=== PATIENT | male | born 1970 | race Caucasian/White ===

== ENCOUNTER 2016-07-30 18:31 | Observation (INO) | payer OTHER ==
[2016-07-30] MEDS ORDERED: VANCOMYCIN HCL/NORMAL SALINE 250 ML IV ONE (18:53)
[2016-07-30 19:02] LABS: % IMMATURE GRANULYOCYTES 0.1 % (0.0-1.1); ABSOLUTE IMMATURE GRANULOCYTES 0.01 10^3/uL (0.00-0.10); ADD DIFF? NO; ADD MORPH? NO; ADD SCAN? NO; ATYPICAL LYMPHOCYTE FLAG 10 (0-99); FRAGMENT RBC FLAG 0 (0-99); HEMATOCRIT 45.7 % (40.0-51.0); HEMOGLOBIN 15.7 g/dL (13.7-17.5); LEFT SHIFT FLG 0 (0-99); LIPEMIA HEMOLYSIS FLAG 90 (0-99); MEAN CELL HEMOGLOBIN 32.7 pg (27.9-34.1); MEAN CELL HEMOGLOBIN CONCENTR. 34.4 g/dL (32.4-36.7); MEAN CELL VOLUME 95.2 fL (81.5-99.8); MEAN PLATELET VOLUME 10.8 fL (8.7-11.7); PLATELET CLUMPS FLAG 0 (0-99); PLATELET COUNT 212 10^3/uL (150-400); RED CELL DISTRIBUTION WIDTH 11.8 % (11.5-15.2)
[2016-07-30 19:19] LABS: ANION GAP 10 mEq/L (8-16); CALCIUM 9.9 mg/dL (8.5-10.4); CARBON DIOXIDE 29 mEq/l (22-31); CHLORIDE 99 mEq/L (97-110); CREATININE 0.9 mg/dL (0.7-1.3); GLOMERULAR FILTRATION RATE > 60; GLUCOSE 91 mg/dL (70-100); POTASSIUM 4.1 mEq/L (3.5-5.2); SODIUM 138 mEq/L (134-144)
--- NOTE | 2016-07-30 19:58 | EDPHY ---
H & P Stated Complaint: ? INFECTED WOUND TO BASE OF L INDEX FINGER HPI/ROS: Chief complaint: Left pointer finger infection History of present illness: This is a 45-year-old male who presents to the emergency department for evaluation of a left pointer finger infection. Patient reports yesterday while camping he cut his finger. Over the last day he has developed pain, redness and swelling to the finger. He has now noticed red streaking up the arm. He denies other associated signs or symptoms including no fevers, chills or rigors. No abnormal coolness or paresthesias in the finger. He can still move the finger well. He believes his tetanus shot was within the last 10 years. Review of systems: A 10 point review of systems was obtained and other than described above was negative - Personal History Current Tetanus/Diphtheria Vaccine: Yes - Medical/Surgical History Hx Asthma: No Hx Chronic Respiratory Disease: No Hx Diabetes: No Hx Cardiac Disease: Yes Hx Renal Disease: No Hx Cirrhosis: No Hx Alcoholism: No Hx HIV/AIDS: No Hx Splenectomy or Spleen Trauma: No Other PMH: hernia, pacemaker - Social History Smoking Status: Never smoked - Physical Exam Exam: General Appearance: Alert, nontoxic. Eyes: Pupils equal and round no injection. Respiratory: Chest is non tender, lungs are clear to auscultation. Cardiac: regular rate and rhythm Gastrointestinal: Abdomen is soft and non tender, no masses, bowel sounds normal. Musculoskeletal: Neck is supple and non tender. Extremities have full range of motion and are non tender. Patient is flexing and extending his left pointer finger well. Skin: There is a wound on the extensor surface of the left pointer finger. It is erythema and edema to the proximal left pointer finger and the dorsum of the left hand. Red streaking all the way up to the level of the axilla. Constitutional: Initial Vital Signs Temperature (C) 36.8 C 07/30/16 18:34 Heart Rate 66 07/30/16 18:34 Respiratory Rate 20 07/30/16 18:34 Blood Pressure 123/78 H 07/30/16 18:34 O2 Sat (%) 95 07/30/16 18:34 O2 Delivery Mode Room Air Allergies/Adverse Reactions: No Known Allergies Allergy (Verified 07/30/16 18:32) Home Medications: Medication Instructions Recorded Herbals/Supplements -Info Only 1 ea PO DAILY 07/30/16 Medical Decision Making - Diagnostics Imaging: Imaging Impressions Hand X-Ray 07/30/16 18:59 Impression: Negative left hand radiographs. ED Course/Re-evaluation: Patient discussed with my secondary supervising physician Dr. Jerald Prieto. Patient presents to the emergency department for a possible infection of his left pointer finger. Patient does appear to have a cellulitis on the left pointer finger and hand. There is associated lymphangitis to the level of the axilla. I do not appreciate evidence of infectious tenosynovitis as of yet although this certainly could be developing. The finger is neurovascularly intact. Blood studies and x-ray unremarkable. Patient started on vancomycin. He is admitted for further evaluation and care. The plan has been discussed with the patient voiced understanding and agreement with it. Differential Diagnosis: Included but not limited to abscess, cellulitis, infectious tenosynovitis, lymphangitis - Data Points Laboratory Results: Laboratory Results 07/30/16 18:55 07/30/16 18:55 07/30/16 07/30/16 18:55 18:55 WBC 7.85 10^3/uL 10^3/uL (3.80-9.50) RBC 4.80 10^6/uL 10^6/uL (4.40-6.38) Hgb 15.7 g/dL g/dL (13.7-17.5) Hct 45.7 % % (40.0-51.0) MCV 95.2 fL fL (81.5-99.8) MCH 32.7 pg pg (27.9-34.1) MCHC 34.4 g/dL g/dL (32.4-36.7) RDW 11.8 % % (11.5-15.2) Plt Count 212 10^3/uL 10^3/uL (150-400) MPV 10.8 fL fL (8.7-11.7) Neut % (Auto) 65.0 % % (39.3-74.2) Lymph % (Auto) 19.1 % % (15.0-45.0) [place] % (Auto) 11.0 % % (4.5-13.0) Eos % (Auto) 4.3 % % (0.6-7.6) Baso % (Auto) 0.5 % % (0.3-1.7) Nucleat RBC Rel Count 0.0 % % (0.0-0.2) Absolute Neuts (auto) 5.10 10^3/uL 10^3/uL (1.70-6.50) Absolute Lymphs (auto) 1.50 10^3/uL 10^3/uL (1.00-3.00) Absolute Monos (auto) 0.86 10^3/uL H 10^3/uL (0.30-0.80) Absolute Eos (auto) 0.34 10^3/uL 10^3/uL (0.03-0.40) Absolute Basos (auto) 0.04 10^3/uL 10^3/uL (0.02-0.10) Absolute Nucleated RBC 0.00 10^3/uL 10^3/uL (0-0.01) Immature Gran % 0.1 % % (0.0-1.1) Immature Gran # 0.01 10^3/uL 10^3/uL (0.00-0.10) Sodium 138 mEq/L mEq/L (134-144) Potassium 4.1 mEq/L mEq/L (3.5-5.2) Chloride 99 mEq/L mEq/L (97-110) Carbon Dioxide 29 mEq/l mEq/l (22-31) Anion Gap 10 mEq/L mEq/L (8-16) BUN 21 mg/dL mg/dL (7-23) Creatinine 0.9 mg/dL mg/dL (0.7-1.3) Estimated GFR > 60 Glucose 91 mg/dL mg/dL (70-100) Calcium 9.9 mg/dL mg/dL (8.5-10.4) Medications Given: Discontinued Medications Vancomycin/Sodium Chloride (Vancomycin 1 Gm (Premix)) 250 mls @ 250 mls/hr IV EDNOW ONE PRN Reason: Protocol Stop: 07/30/16 19:52 Last Admin: 07/30/16 19:05 Dose: 250 mls Departure - Departure Disposition: [facility] Acute Condition: Good
[2016-07-30] MEDS ORDERED: ZOLPIDEM TARTRATE 5 MG TAB PO PRN (21:19)
[2016-07-30] MEDS ORDERED: ACETAMINOPHEN 325 MG TAB PO PRN (21:19)
[2016-07-30] MEDS ORDERED: ONDANSETRON DISINTEGRATING 4 MG TAB PO PRN (21:19)
[2016-07-30] MEDS ORDERED: ONDANSETRON 4 MG/2 ML VIAL IVP PRN (21:19)
[2016-07-30] MEDS ORDERED: oxyCODONE IR 5 MG TAB PO PRN (21:19)
--- NOTE | 2016-07-30 22:55 | GHP ---
[f rep st] HISTORY AND PHYSICAL DATE OF ADMISSION: 07/30/2016 CHIEF COMPLAINT: Pain and streaking in the right hand. HISTORY: This is a 45-year-old man, with minimal past medical history, who presents with complaints of a wound present on his right hand, that has developed worsening erythema, edema, and now streaki ng redness up to his axilla. The patient does not really recall what he did to his hand, but has steiner d a small cut at the base of his left index finger. He really was not noticing much about it, excep t that over the course of the day today, he noticed that it was significantly more red, and there wa s now streaking redness up his arm. He has not had fevers or chills. He has not felt sick. He bridges s have reasonable range of motion in his left finger. He has not had any purulent discharge from th is area. He has never had similar issues in the past. PAST MEDICAL HISTORY: Includes symptomatic bradycardia, status post permanent pacemaker placement. PAST SURGICAL HISTORY: 1. Bilateral inguinal hernia repair. 2. Pacemaker. FAMILY HISTORY: This was reviewed and is noncontributory. SOCIAL HISTORY: Patient is recently in the last year. His unexpectedly. He does have 1 daughter who is 7 years old. He is a nonsmoker, nondrinker, nondrug user. REVIEW OF SYSTEMS: A 10-point review of systems obtained, negative except as per HPI. MEDICATIONS: None. ALLERGIES: No known drug allergies. PHYSICAL EXAMINATION: VITAL SIGNS: BP 103/62, heart rate 58, respiratory rate 20. O2 saturation i s 97% on room air. Temperature 37.1. GENERAL APPEARANCE: This is a well-developed/well-nourished man. He is awake and alert. He is in no acute distress. EYES: Anicteric. HENT: Oropharynx fabio r. CARDIOVASCULAR: RRR, no MRG. PULMONARY: CTA bilaterally, normal work of breathing. ABDOMEN: Soft, nontender, nondistended. EXTREMITIES: No clubbing, cyanosis, or edema. SKIN: Warm, dry, w ell perfused, other than left index finger with a laceration at the base, erythema and edema involvi ng the 1st MCP, and streaking from the injury up to his left axilla, without any associated lymphade nopathy. NEURO/PSYCH: Oriented and appropriate, pleasant. CLINICAL DATA: Labs reviewed. CBC is unremarkable. Chemistry likewise unremarkable. Hand x-ray, personally reviewed and interpreted, showing no abnormality of the left hand. ASSESSMENT AND PLAN: This is a 45-year-old man presenting with left hand cellulitis and lymphangiti s. 1. Cellulitis/lymphangitis. Patient has been started on IV vancomycin. He is nonseptic appearing. He does not have significant risk factors for nosocomial organisms. We will continue vancomycin f or now, and so long as there is clinical improvement, he likely could be transitioned to oral antibi otics such as Keflex, and discharged home tomorrow. However, should his symptoms not improve, he wo uld require further inpatient monitoring. 2. History of symptomatic bradycardia, with permanent pacemaker. He has had no issues since this w as placed many years ago. 3. Disposition. Observation status. Suspect he will need less than 48-hour stay for evaluation an d management of above. 4. Care plan was reviewed with the emergency room physician, including plans for vancomycin treatme nt. Old records were reviewed and summarized, as per HPI and Past Medical History. Further history is obtained from patient's friend and daughter present at bedside. /[id number]/MODL
[2016-07-31 06:46] LABS: % IMMATURE GRANULYOCYTES 0.2 % (0.0-1.1); ABSOLUTE IMMATURE GRANULOCYTES 0.01 10^3/uL (0.00-0.10); ADD DIFF? NO; ADD MORPH? NO; ADD SCAN? NO; ATYPICAL LYMPHOCYTE FLAG 10 (0-99); FRAGMENT RBC FLAG 0 (0-99); HEMOGLOBIN 14.5 g/dL (13.7-17.5); LEFT SHIFT FLG 0 (0-99); LIPEMIA HEMOLYSIS FLAG 90 (0-99); MEAN CELL HEMOGLOBIN 32.4 pg (27.9-34.1); MEAN CELL HEMOGLOBIN CONCENTR. 34.5 g/dL (32.4-36.7); MEAN CELL VOLUME 93.8 fL (81.5-99.8); MEAN PLATELET VOLUME 10.7 fL (8.7-11.7); PLATELET CLUMPS FLAG 30 (0-99); PLATELET COUNT 192 10^3/uL (150-400); RED BLOOD CELL COUNT 4.48 10^6/uL (4.40-6.38); RED CELL DISTRIBUTION WIDTH 11.8 % (11.5-15.2)
[2016-07-31] MEDS ORDERED: VANCOMYCIN 1.25 GM in D5W 250 ML IV SCH ×2 (07:00→18:30)
[2016-07-31 09:29] VITALS: BP 120/66; PULSE 59; RESP 17; TEMP 97.4; O2SAT 94
--- NOTE | 2016-07-31 10:07 | PDDCSUM ---
Discharge Summary Discharge Summary: DISCHARGE DIAGNOSES: -Cellulitis at left index finger, left hand, extending up left arm to proximal upper arm -Small infected traumatic wound dorsal aspect of left index finger HOSPITAL COURSE SUMMARY: This patient has a small laceration on the dorsal aspect of proximal left index finger previously. Yesterday he had onset of swelling redness and pain and this cellulitic process progressed up the arm to the proximal upper arm. There was no abscess no sign of deep tissue infection, necrosis, but there was a small open wound over the dorsal aspect of the hand that was open and draining. Cultures have been obtained from the wound but are still pending. The patient was admitted the hospital and treated with vancomycin and responded quite well. He has no clinical factors that we have him at increased risk for MRSA at this point. He is felt stable for discharge to home on oral antibiotics. He was warned of the possibility of resistant organism that could lead to failure of this oral antibiotic therapy and he knows what to watch for in terms of indications for re-evaluation or switching to IV medicines or requirement for any drainage. 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 We are arranging for follow up in our primary care clinic for him. Greater than 35 minutes bedside and care coordination time today
--- NOTE | 2016-07-31 11:59 | WOCRNPDOC ---
WOCRN Advanced Assessment Note - Skin Integrity Problem, Advanced Assess Left Second Finger Dressing Type: Open to Air Exudate Amount: Scant Exudate Color: Reddish/Yellow Exudate Characteristic(s): Serosanguinous Integumentary Issue Intervention: Dressing Applied (Silvasorb gel and bandaid) Leana Wound Tissue: Erythema, Swollen Leana Wound Swelling: Moderate Wound Bed Color: Red, Yellow Wound Bed Constitution: Adhered Slough (95%) Wound Edges: Thick (indurated) Site Odor: None Site Measurement - Head-to-Toe Length X Width X Depth (cm): 0.8 cm chester x 0.3 cm d Skin Integrity Problem Comment: Saw patient just prior to DC home. Cleansed site w/sterile NS and gauze; applied silvasorb gel to wound bed; covered w/ bandaid. Provided patient with verbal and demo home care instructions. PANCHO Dennis present.
== END 2016-07-31 09:58 | disposition home or self-care (01) ==
LOC: INTOOBSV 20:55 → F1N 22:59
PROVIDERS: ADMIT Internal Medicine; ATTEND Internal Medicine
DX: S61.211A Laceration without foreign body of left index finger without damage to nail, initial encounter (principal); T79.8XXA Other early complications of trauma, initial encounter; L03.012 Cellulitis of left finger; L03.114 Cellulitis of left upper limb; B95.0 Streptococcus, group A, as the cause of diseases classified elsewhere; B95.61 Methicillin susceptible Staphylococcus aureus infection as the cause of diseases classified elsewhere; W26.9XXA Contact with unspecified sharp object(s), initial encounter; Y93.89 Activity, other specified; Y92.833 Campsite as the place of occurrence of the external cause; Y99.8 Other external cause status; Z95.0 Presence of cardiac pacemaker
CPT/HCPCS: 73130; G0378; J3370

== ENCOUNTER 2016-10-13 11:52 | Emergency (ER) | payer OTHER ==
--- NOTE | 2016-10-13 12:15 | CPEKG ---
Heart Rate: 58 RR Interval: 1034 P-R Interval: 248 QRSD Interval: 106 QT Interval: 412 QTC Interval: 405 P [place]: 60 QRS [place]: 92 T Wave [place]: 3 EKG Severity - ABNORMAL ECG - EKG Impression: SINUS RHYTHM EKG Impression: FIRST DEGREE AV BLOCK EKG Impression: RBBB EKG Impression: ST elevation, nonspecific, V2 and V3 Electronically Signed By: Lisa Cross 13-Oct-2016 16:45:09
[2016-10-13] MEDS ORDERED: ASPIRIN 81 MG CHEWABLE TAB ONE (12:22)
--- NOTE | 2016-10-13 12:26 | EDPHY ---
H & P Stated Complaint: Going on trip;wants check for ?afib and bilat neck pressure - Personal History Current Tetanus Diphtheria and Acellular Pertussis (TDAP): Yes - Medical/Surgical History Hx Asthma: No Hx Chronic Respiratory Disease: No Hx Diabetes: No Hx Cardiac Disease: Yes Hx Renal Disease: No Hx Cirrhosis: No Hx Alcoholism: No Hx HIV/AIDS: No Hx Splenectomy or Spleen Trauma: No Other PMH: hernia, pacemaker - Social History Smoking Status: Never smoked HPI/ROS: CHIEF COMPLAINT: Bilateral facial pressure HISTORY OF PRESENT ILLNESS: This patient is a 45 year old male with pacemaker and history of atrial fibrillation complaining of bilateral facial pressure onset yesterday mid afternoon. He reports he often gets exercise-induced tachycardia, and experienced this yesterday while on a bike ride, causing him to abort his exercise. He states he is generally quite healthy and active. He does have family cardiac history: his father had an NJ at an early age (around 40) and later from a subsequent cardiac event at age 75. He reports he received his pacemaker in 2005 following onset of atrial fibrillation and subsequent vasovagal episodes resulting in a 3 week admission to the ICU. His pacemaker was replaced last July in [place] at [facility]. Today, he states he developed the facial pressure and sensations similar to those he feels prior to onset of tachycardia. He states he is planning to travel tomorrow. He reports he has taken 81mg aspirin this morning. He denies chest pain, difficulty breathing, nausea, or other associated symptoms. REVIEW OF SYSTEMS: A ten point review of systems was performed and is negative with the exception of the items mentioned in the HPI. 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 Originally from [place]. (Lisa Cross) - Physical Exam Exam: General Appearance: Alert. Vital signs reviewed. * Eyes: Pupils equal and round, no conjunctival injection, no discharge. Anicteric. ENT, Mouth: Mucous membranes are moist, no oropharyngeal erythema or edema. Neck: No lymphadenopathy, supple. Respiratory: Lungs are clear to auscultation; no wheezes, rales, or rhonchi. Cardiovascular: Regular rate and rhythm; no murmur, rub, or gallop. Gastrointestinal: Abdomen is soft and nontender, no masses or organomegaly, bowel sounds normal. Skin: Warm and dry, no rashes on exposed skin, normal color. Back: Nontender to palpation over the thoracolumbar spine. No CVAT. Extremities: No lower extremity edema, no calf tenderness or swelling. Neurological: Alert and oriented. Moving all four extremities easily and equally. Cranial nerves II through XII are examined and are intact (visual acuity not tested). Strength is 5 over 5 bilaterally with testing of all major motor groups. Sensation is intact to light touch over all 4 extremities. Deep tendon reflexes are 2+ in the biceps and knees bilaterally. Gait is normal. [id number] is performed accurately. Psychiatric: Normal affect. (Lisa Cross) Constitutional: Initial Vital Signs Temperature (C) 36.5 C 10/13/16 11:55 Heart Rate 58 L 10/13/16 11:55 Respiratory Rate 16 10/13/16 11:55 Blood Pressure 118/81 H 10/13/16 11:55 O2 Sat (%) 96 10/13/16 11:55 O2 Delivery Mode Room Air Allergies/Adverse Reactions: No Known Allergies Allergy (Verified 10/13/16 11:57) Home Medications: Medication Instructions Recorded NK [No Known Home Meds] 10/13/16 Medical Decision Making - Diagnostics EKG Interpretation: 12:14 The 12 lead EKG was interpreted by myself. See hard copy and/or "tracemaster" electronic copy for interpretation. Sinus rhythm, rate 58. ST Elevation. 12:59 The 12 lead EKG was interpreted by myself. See hard copy and/or "tracemaster" electronic copy for interpretation. Sinus rhythm, rate 54. Right bundle branch block. ST elevation V2-V6. First degree AV block, probable left atrial abnormality. (Lisa Cross) ED Course/Re-evaluation: Reviewed previous EKG from [facility] in [place]. Today's EKG is different from what was seen in 2016. Dr. Calloway of Cardiology recommends interrogating his pacemaker and obtain echocardiogram. Initial troponin is normal, as are his CBC and chemistries. 13:[address] Calloway, machine tailer. Plan for continued observation, repeat Troponin. Echocardiogram reported as normal. Pacemaker interrogation was unremarkable. No evidence of arrhythmia. The patient is fine with waiting for a 2nd troponin. It will be obtained at 6: 30 p.m.. This will be resulted to Dr. Tej Rodriges. Assuming that it is normal, the patient will return home. I do not think that his bilateral facial pain is indicative of an acute coronary syndrome. I have not found another etiology for his pain. There is no evidence of TMJ. Dentition looks good. No cervical lymphadenopathy or evidence of infection. There is no evidence of cardiac arrhythmia. (Lisa Cross) Patient's repeat troponin is negative. He will be discharged according to plan. (Tej Rodriges) - Data Points Laboratory Results: Laboratory Results 10/13/16 12:24 10/13/16 12:24 10/13/16 10/13/16 10/13/16 18:31 12:24 12:24 WBC 4.08 10^3/uL 10^3/uL (3.80-9.50) RBC 4.77 10^6/uL 10^6/uL (4.40-6.38) Hgb 15.4 g/dL g/dL (13.7-17.5) Hct 45.5 % % (40.0-51.0) MCV 95.4 fL fL (81.5-99.8) MCH 32.3 pg pg (27.9-34.1) MCHC 33.8 g/dL g/dL (32.4-36.7) RDW 11.8 % % (11.5-15.2) Plt Count 189 10^3/uL 10^3/uL (150-400) MPV 10.6 fL fL (8.7-11.7) Neut % (Auto) 51.2 % % (39.3-74.2) Lymph % (Auto) 31.4 % % (15.0-45.0) [place] % (Auto) 12.3 % % (4.5-13.0) Eos % (Auto) 4.4 % % (0.6-7.6) Baso % (Auto) 0.5 % % (0.3-1.7) Nucleat RBC Rel Count 0.0 % % (0.0-0.2) Absolute Neuts (auto) 2.09 10^3/uL 10^3/uL (1.70-6.50) Absolute Lymphs (auto) 1.28 10^3/uL 10^3/uL (1.00-3.00) Absolute Monos (auto) 0.50 10^3/uL 10^3/uL (0.30-0.80) Absolute Eos (auto) 0.18 10^3/uL 10^3/uL (0.03-0.40) Absolute Basos (auto) 0.02 10^3/uL 10^3/uL (0.02-0.10) Absolute Nucleated RBC 0.00 10^3/uL 10^3/uL (0-0.01) Immature Gran % 0.2 % % (0.0-1.1) Immature Gran # 0.01 10^3/uL 10^3/uL (0.00-0.10) Sodium 137 mEq/L mEq/L (134-144) Potassium 4.6 mEq/L mEq/L (3.5-5.2) Chloride 101 mEq/L mEq/L (97-110) Carbon Dioxide 25 mEq/l mEq/l (22-31) Anion Gap 11 mEq/L mEq/L (8-16) BUN 20 mg/dL mg/dL (7-23) Creatinine 1.0 mg/dL mg/dL (0.7-1.3) Estimated GFR > 60 Glucose 107 mg/dL H mg/dL (70-100) Calcium 9.6 mg/dL mg/dL (8.5-10.4) Troponin I < 0.012 ng/mL ng/mL < 0.012 ng/mL ng/mL (0-0.034) (0-0.034) Departure - Departure Disposition: Home, Routine, Self-Care Clinical Impression: Jaw pain Condition: Good Instructions: Atypical Facial Pain (ED) Additional Instructions: It is not clear what caused the pressure in your jaw/face. There is no evidence of this being related to your heart. As you know, your echocardiogram was normal. There was no problem with your pacemaker when it was interrogated and no evidence of cardiac arrhythmia. Your blood work was within normal limits. No further evaluation is being recommended at this time. I am referring you to Dr. Sathya Calloway of Cardiology. Referrals: PA HUNT [Other] - As per Instructions Sathya Calloway MD [Medical Doctor] - As per Instructions Report Scribed for: Lisa Cross Report Scribed by: Chrissie Jin Date of Report: 10/13/16 Time of Report: 12:37
[2016-10-13 12:36] LABS: HEMATOCRIT 45.5 % (40.0-51.0); HEMOGLOBIN 15.4 g/dL (13.7-17.5); MEAN CELL HEMOGLOBIN 32.3 pg (27.9-34.1); MEAN CELL HEMOGLOBIN CONCENTR. 33.8 g/dL (32.4-36.7); MEAN CELL VOLUME 95.4 fL (81.5-99.8); RED BLOOD CELL COUNT 4.77 10^6/uL (4.40-6.38)
[2016-10-13 12:37] LABS: % IMMATURE GRANULYOCYTES 0.2 % (0.0-1.1); ABSOLUTE IMMATURE GRANULOCYTES 0.01 10^3/uL (0.00-0.10); ADD DIFF? NO; ADD MORPH? NO; ADD SCAN? NO; ATYPICAL LYMPHOCYTE FLAG 0 (0-99); FRAGMENT RBC FLAG 0 (0-99); LEFT SHIFT FLG 0 (0-99); LIPEMIA HEMOLYSIS FLAG 90 (0-99); MEAN PLATELET VOLUME 10.6 fL (8.7-11.7); PLATELET CLUMPS FLAG 0 (0-99); PLATELET COUNT 189 10^3/uL (150-400); RED CELL DISTRIBUTION WIDTH 11.8 % (11.5-15.2)
[2016-10-13 12:59] LABS: ANION GAP 11 mEq/L (8-16); CALCIUM 9.6 mg/dL (8.5-10.4); CARBON DIOXIDE 25 mEq/l (22-31); CHLORIDE 101 mEq/L (97-110); GLOMERULAR FILTRATION RATE > 60; GLUCOSE 107 mg/dL (70-100); POTASSIUM 4.6 mEq/L (3.5-5.2); SODIUM 137 mEq/L (134-144)
--- NOTE | 2016-10-13 13:01 | CPEKG ---
Heart Rate: 54 RR Interval: 1111 P-R Interval: 248 QRSD Interval: 104 QT Interval: 424 QTC Interval: 402 P [place]: 72 QRS [place]: 90 T Wave [place]: 25 EKG Severity - ABNORMAL ECG - EKG Impression: SINUS RHYTHM EKG Impression: FIRST DEGREE AV BLOCK EKG Impression: RBBB EKG Impression: ST elevation V2 and V3, nonspecific Electronically Signed By: Lisa Cross 13-Oct-2016 16:44:00
[2016-10-13 13:11] LABS: TROPONIN I < 0.012 ng/mL (0-0.034)
--- NOTE | 2016-10-13 15:07 | ECHO ---
[id number] + + [address] : : [place] [address] : : [phone] + + Adult Echocardiographic Report + --------+ :Name: WEI FREITAS DStudy Date: 10/13/2016 02:08 PM : : Hospital Admission Number: [id number] Loca tion: ER: :: 1970 Gender: Male Height: 69 i n : :Age: 45 yrs Race: WH Weight: 150 lb : :Reason For Study: chest pain : : BSA: 1.8 met ers2 : :History: chest pain : + --------+ MMode/2D Measurements \T\ Calculations IVSd: 0.96 cm RVDd: 4.0 cm FS: 45.3 % Ao root diam: LVPWd: 1.1 cm LVIDd: 4.7 cm EDV(Teich): 3.4 cm LVIDs: 2.6 cm 103.4 ml ESV(Teich): 24.1 ml EF(Teich): 76.7 % LVLd ap4: 9.6 cm SV(MOD-sp4): EDV(MOD-sp4): 92.0 ml 135.0 ml LVLs ap4: 7.3 cm ESV(MOD-sp4): 43.0 ml EF(MOD-sp4): 68.1 % Normal Measurement Values: + + :LVIDd (3.5-5.7cm) IVSd (0.6-1.1cm) LVPWd (0.6-1.1cm) Aortic Root (2.0-3.7cm)Left Atrium (1.5-4.0cm): :LV Vol(d) (76-115ml) LV Vol(s) (29-48ml) Ejec Fraction (50-65%)PV Anupam (0.6- 1.2m/s) TV Anupam (0.4-1.0m/s) : :MV E Anupam (0.8-1.0m/s)MV A Anupam (0.3-1.0m/s)LVOT Anupam (0.7-1.2m/s) Asc Ao Anupam ( 0.9-1.8m/s) : + + Doppler Measurements \T\ Calculations MV E max anupam: Ao V2 max: LV V1 max: PA V2 max: 50.5 cm/sec 131.0 cm/sec 112.0 cm/sec 92.3 cm/sec MV A max anupam: Ao max PG: LV V1 max PG: PA max P.9 cm/sec 6.9 mmHg 5.0 mmHg 3.4 mmHg MV E/A: 1.7 MV dec time: 0.17 sec TR max anupam: 194.0 cm/sec TR max P.1 mmHg RAP systole: 10.0 mmHg RVSP(TR): 25.1 mmHg Left Ventricle The left ventricle is normal in size and function. There is borderline concentric left ventricular hypertrophy. Ejection Fraction = 65-70%. No regional wall motion abnormalities noted. 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 There is a pacemaker lead in the right ventricle. Atria The left atrium is mildly dilated. The Left Atrial Volume is 38 ml/m2. The right atrium is mildly dilated. The atrial septum is aneurysmal. Injection of contrast documented no interatrial shunt. Mitral Valve The mitral valve is normal in structure and function. There is no mitral valve stenosis. There is trace mitral regurgitation. Tricuspid Valve The tricuspid valve is normal in structure and function. There is no tricuspid stenosis. There is mild tricuspid regurgitation. Right ventricular systolic pressure is 25mmHg. Aortic Valve The aortic valve is trileaflet. There is no aortic stenosis. There is no aortic insufficiency. Pulmonic Valve The pulmonic valve is normal in structure and function. Great Vessels The aortic root is normal size. Pericardium/Pleural There is no pericardial effusion. Conclusion A two-dimensional transthoracic echocardiogram with M-mode and Doppler was performed. Agitated saline administered to rule out cardiac shunt. The left ventricle is normal in size and function. There is borderline concentric left ventricular hypertrophy. Ejection Fraction = 65-70%. Normal LV wall motion. There is a pacemaker noted in the right heart. The left atrium is mildly dilated. The Left Atrial Volume is 38 ml/m2. The right atrium is mildly dilated. The atrial septum is aneurysmal however appears intact on doppler interrogation. Injection of contrast documented no interatrial shunt. Valvular appearance is normal. There is trace mitral regurgitation. There is mild tricuspid regurgitation. Right ventricular systolic pressure is 25mmHg. Final Reading Physician: Juliet Prasad signed on 10/13/2016 03:06 PM Ordering Physician: DAVID AVILA Performed By: Mignon Dunn
--- NOTE | 2016-10-13 15:18 | GCON ---
[f rep st] CONSULTATION CARDIOLOGY CONSULTATION DATE OF CONSULTATION: 10/13/2016 INDICATIONS: The patient is 45 years old. He has a cardiovascular history significant for episodes of atrial fibrillation dating back to 2005. Apparently at that time, he had a [employer] dual-chamb er pacemaker implanted in [facility]. He has been followed ever since. He states he almost n ever paces. His initial device having been implanted in 2005, had a generator change done in 2015. Additionally, he has had episodes of self-limited SVT, noted both symptomatically and on device int errogations over the last several years. He thinks that he has 20 or 30 of these episodes every 6 m onths. He had episodes yesterday when he was riding his bike. At that time, he experienced symptom s of very fast heart rate, associated with palpitations. Additionally, he has a sensation of fatigu e associated with these rapid heart rates. Because of multiple episodes of palpitations yesterday w hen he was riding a bike, he aborted his ride and returned home. Today he comes in with complaints of head fullness. He states that he has had pressure in both temples. Sometimes he gets a similar pressure sensation when he experiences his SVT episodes, although, did not have episodes of rapid he art rate today. He specifically denies chest discomfort. He notes no throat or jaw pain and denies symptoms of dyspnea. In the emergency department, here he has been hemodynamically stable, in normal sinus rhythm. His initial electrocardiogram demonstra jose sinus rhythm, with a right bundle branch block and nonspecific J-point elevation and ST changes in leads V2 and V3. A bedside echocardiogram was performed. This demonstrated normal and homogeneo us contractility to all cardiac segments. The right ventricle appeared to be generous although not enlarged specifically. His initial labs were normal, including a negative troponin. PAST MEDICAL HISTORY: 1. History of atrial fibrillation dating back to 2005. Currently, he has maybe 1 or 2 episodes a y ear. 2. History of SVT. He has frequent episodes of SVT associated with palpitation. 3. History of sick sinus syndrome, with history of dual-chamber pacemaker implantation back in 2005 , and generator change in 2009. SURGICAL HISTORY: Bilateral inguinal herniorrhaphy and pacemaker implantation. ALLERGIES: None. FAMILY HISTORY: His father apparently develop coronary artery disease when he was fairly young and when he was 76. SOCIAL HISTORY: He is originally from [facility]. Apparently, his was struck and killed a year and a half ago by a dump truck in [facility]. He moved to [place] to attend [employer], which he has been attending since April of 2016. 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 He has a 7-year-old daughter. 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 Often times, he will do 60+ mile rides, involving multiple climbs. He does not smoke. Uses alcohol only on a rare basis and does not use drugs. REVIEW OF SYSTEMS: A full 10-point review of systems was performed and was otherwise negative. PHYSICAL EXAMINATION: VITAL SIGNS: His blood pressure is currently 121/75, with a mean of 90, his heart rates has been in the 50s and high 40s. Room air saturations are 96%. GENERAL: He is a very healthy white male, in no acute distress. HEENT: Normocephalic, atraumatic. He has anicteric scl erae. Oropharynx unremarkable. Carotids 2+ bilaterally with no bruits. He has no jugular venous d istention, adenopathy or thyromegaly. RESPIRATORY: He is breathing easily, resting comfortably, us ing no accessary muscles on auscultation. He has clear lung cross bilaterally. CARDIAC: Precordial inspection is unremarkable. PMI is nondisplaced . On auscultation, he has a regular rate and rhythm without murmurs, gallops, or rubs. He does hav e a pacemaker in the left infraclavicular fossa. ABDOMEN: Soft, nontender. He has normoactive bow el sounds, there are no masses. EXTREMITIES: Well perfused. He has no lower extremity edema. VAS CULATURE: He has 2+ radial, dorsal pedal, and posterior tibial pulses, with nonpalpable aorta. DATABASE: As above. IMPRESSION: 1. Head fullness. 2. History of multiple episodes of supraventricular tachycardia. 3. History of paroxysmal atrial fibrillation with infrequent recurrences. 4. History of previous dual-chamber pacemaker implantation. 5. Abnormal ECG, consistent with a right bundle branch block, 1st degree AV block, and nonspecific anterior ST changes. DISCUSSION: The patient is 45 years old with a cardiovascular history as detailed above. He presen ts today with fairly nonspecific symptoms of bilateral head fullness. He has had absolutely no ches t symptoms whatsoever, specifically denying chest pain, chest pressure and dyspnea. He also notes n o jaw discomfort. In talking to him, he has very frequent episodes of very rapid heart rates. Thes e have occurred for years and previous pacemaker interrogations have defined episodes of SVT. Addit ionally, he has episodes of atrial fibrillation, per his report which have been fairly infrequent, g enerally occurring 2 or 3 times a year. He appears stable at the present time. His initial cardiac enzymes are negative and his echocardiogram which was done at the bedside, reveals homogeneous cont ractility of all cardiac segments. While I am not clear as to the etiology of his head fullness, I think it is unrelated to his cardiovascular history. RECOMMENDATIONS: 1. I would like him to have his pacemaker interrogated today. 2. I would like to trend his enzymes here in the emergency department. His initial troponin was dr grant at 12:24. I would like him to have another troponin at 6:24 or 6:30 time frame. If this is neg ative he can be discharged home. 3. I would like him to follow up with me in the outpatient setting. He and I can then discuss furt her plans for treatment. /[id number]/MODL
[2016-10-13 19:23] VITALS: BP 117/74; PULSE 70; RESP 14; TEMP 98.4; O2SAT 94
== END 2016-10-13 19:22 | disposition home or self-care (01) ==
DX: R68.84 Jaw pain (principal); Z95.0 Presence of cardiac pacemaker

== ENCOUNTER → 2017-07-26 | Outpatient (CLI) | payer OTHER | LOC: FIMAGING 12:48 | PROVIDERS: ATTEND Physician Assistant Medical | DX: R20.2 Paresthesia of skin (principal); R42 Dizziness and giddiness ==